=== PATIENT | male | born 1990 | race Caucasian/White ===

== ENCOUNTER 2020-08-07 10:53 | Emergency (ER) | payer BC, OTHER ==
[~2020-08-07] VITALS: Ht 177.8 cm; Wt 90.7 kg
[2020-08-07 10:58] VITALS: BP 134/82
--- NOTE | 2020-08-07 11:00 | NUR ---
Pt referred from urgent care. c/o right arm pain 02/14 & swelling since 07/31. Denies trauma/injury medhx: denies
[2020-08-07 12:04] VITALS: BP 134/82
--- NOTE | 2020-08-07 12:04 | NUR ---
Patient discharged with v/s stable. Written and verbal after care instructions given and explained. Patient alert, oriented and verbalized understanding of instructions. Ambulatory with steady gait. All questions addressed prior to discharge. ID band removed. Patient advised to follow up with PMD. Rx of motrin, prednisone& norco given. Patient educated on indication of medication including possible reaction and side effects. Opportunity to ask questions provided and answered.
== END 2020-08-07 12:04 | disposition home or self-care (01) ==
LOC: MED 10:53
DX: M79.89 Other specified soft tissue disorders (principal); M79.601 Pain in right arm
CPT/HCPCS: 99283